=== PATIENT | male | born 1980 | race Caucasian/White ===

== ENCOUNTER → 2022-06-26 13:19 | Outpatient (CLI) | payer BC, SELFPAY ==
--- NOTE | ~2022-06-26 | XR_ITS ---
XR hip RT min 3V w AP pelvis 06/26/2022 13:32 Indication: Right hip pain Procedure: AP pelvis and 2 views right hip Comparison: No prior studies for comparison. Findings: There is mild-moderate osteoarthritis of the hips. No fracture, subluxation or dislocation. Pelvic rings are intact. Sacral foramen are symmetric. Impression: 1: Mild-moderate symmetric osteoarthritis of the hips. Reviewed, dictated and finalized at location L. AND DIE MANAGER Impression: 1: Mild-moderate symmetric osteoarthritis of the hips.
== END ==
PROVIDERS: PCP Family Medicine; Visit Provider Family Medicine
DX: M25.551 Pain in right hip (principal); M16.0 Bilateral primary osteoarthritis of hip
CPT/HCPCS: 73502

== ENCOUNTER 2022-08-01 10:31 | Outpatient (CLI) | payer BC, SELFPAY ==
[2022-08-01 11:07] LABS: Hematocrit 49.2 % (42.0-52.0); Hemoglobin 16.4 g/dL (14.0-18.0); Mean Corpuscular HGB Conc 33.3 g/dl (32-36); Mean Corpuscular Hemoglobin 31.4 pg (26-34); Mean Corpuscular Volume 94.1 fl (80-100); Mean Platelet Volume 9.4 fl (7.4-10.4); Platelet Count Result 196 k/mm3 (150-375); Red Blood Count 5.23 M/mm3 (4.6-6.20); Red Cell Distribution Width 12.6 % (11.5-14.5); White Blood Count 4.6 K/mm3 (4.5-10.0)
[2022-08-01 11:11] LABS: Alanine Aminotransferase 41 U/L (6-50); Albumin Level 4.6 g/dL (3.5-5.1); Alkaline Phosphatase 65 U/L (38-126); Anion Gap 7 mmol/L (8-16); Aspartate Amino Transferase 33 U/L (17-59); Blood Urea Nitrogen 13 mg/dL (9-20); CRP < 0.5 mg/dL (<1.0); Carbon Dioxide 29 mmol/L (22-30); Chloride 102 mmol/L (98-107); Estimated Glomerular Filt Rate > 60; Glucose 105 mg/dL (65-110); Potassium 4.1 mmol/L (3.4-5.0); Sodium 138 mmol/L (137-145)
[2022-08-01 12:28] LABS: Thyroid Stimulating Hormone Reflex 0.553 uIU/mL (0.465-4.68)
[2022-08-01 12:37] LABS: Erythrocyte Sedimentation Rate 3 mm/hr (0-20)
[2022-08-07 10:03] LABS: Gliadin AB, IgG <1.0 U/mL (<15.0); TTG IGA AB <1.0 U/mL (<15.0)
== END 2022-08-01 10:32 | disposition home or self-care (01) ==
PROVIDERS: PCP Family Medicine; Visit Provider Nurse Practitioner
DX: R10.31 Right lower quadrant pain (principal); R10.32 Left lower quadrant pain; Z87.19 Personal history of other diseases of the digestive system; K52.9 Noninfective gastroenteritis and colitis, unspecified
CPT/HCPCS: 36415; 80053; 84443; 85027; 85652; 86140; 86255; 86364

== ENCOUNTER 2022-08-15 08:50 | Outpatient (CLI) | payer BC, SELFPAY ==
--- NOTE | ~2022-08-15 | CT_ITS ---
CT of the Abdomen and Pelvis: Indication: Abdominal pain Technique: 2.5 mm axial scans were obtained through the abdomen and pelvis following intravenous adm inistration of 100 cc of Omnipaque 350. Dose reduction technique was used on this scan by utilizing a utomated exposure control and iterative reconstruction technique. The dose-length product (DLP) was 6 21.34 mGy-cm. COMPARISON: 03/29/2014 Findings: Scans through the lung bases are unremarkable. The liver, spleen, pancreas, gallbladder, adrenals and kidneys are within normal limits. No evidence of aortic aneurysm. No lymphadenopathy. No bowel obstruction or bowel wall thickening. There is no evidence to suggest acute appendicitis. Images through the pelvis were performed. Urinary bladder unremarkable. Prostate gland and seminal ve sicles are unremarkable. No ascites. Impression: No significant abnormalities seen. Reviewed, dictated and finalized at [facility]. Impression: No significant abnormalities seen.
== END 2022-08-15 08:51 | disposition home or self-care (01) ==
PROVIDERS: PCP Family Medicine; Visit Provider Nurse Practitioner
DX: R10.32 Left lower quadrant pain (principal)
CPT/HCPCS: 74177; Q9967

== ENCOUNTER 2022-08-30 01:52 | Day surgery (SDC) | payer BC, SELFPAY ==
[2022-08-16 11:27] VITALS: BMI 28.5
[2022-08-30 08:07] VITALS: BP 118/74; PULSE 77; RESP 16; TEMP 36.3; O2SAT 100; BMI 28.1
[2022-08-30] MEDS: LACTATED RINGERS 1,000 ML 150 ML IV CONT (08:17)
--- NOTE | 2022-08-30 09:17 | P.HPUP_ITS ---
History and Physical Update Update Date/Time: 08/30/22 09:17 Patient's laboratory testing reveals that patient has an elevated anti - gliadin IgA antibody. For this reason additional EGD is requested to exclude celiac sprue. Anti tTG antibody is negative however patient does have chronic soft diarrhea stools that did improve with fiber but is not totally reason to normal. He has had no recent problems with his anal fissure. Family history is significant that his mother was diagnosed with ulcerative colitis. History and Physical has been reviewed, including an updated exam of the patient. There are NO changes in the patient's condition. Risks, benefits, and alternatives have been discussed and questions answered. Patient agrees to proceed with procedure.
--- NOTE | 2022-08-30 09:41 | WPDANESEPPF ---
Anes - Initial Pre Proc Eval Procedure: Operation Date: 08/30/22 09:30 Proposed Procedures p Esophagogastroduodenoscopy with small bowel biopsies & Colonoscopy - Shashi Dickens MD Date/Time: 08/30/22 09:41 Surgeon: Shashi Dickens MD Pre Op Diagnosis: loose stool,gastroenteritis colitis; abn celiac Patient Data Age: 42 Gender: M Height: 1.85 m Weight: 96.9 kg Last Vital Signs Temp 97.3 F L 08/30/22 08:07 Pulse 77 08/30/22 08:07 Resp 16 08/30/22 08:07 BP 118/74 08/30/22 08:07 Pulse Ox 100 08/30/22 08:07 O2 Del Method Room Air 08/30/22 08:07 Allergies Allergy/AdvReac Type Severity Reaction Status Date / Time No Known Allergies Allergy Mild Verified 08/30/22 08:06 Home Medications Medication Instructions Recorded Confirmed Type cetirizine 10 mg capsule (Zyrtec) 10 mg PO DAILY 04/03/19 08/30/22 History montelukast 10 mg tablet 10 mg PO DAILY 11/16/20 08/30/22 History (Singulair) dextroamphetamine-amphetamine ER 10 mg PO QAM #30 caps 07/04/22 08/30/22 Rx 10 mg 24hr capsule,extend release (Adderall XR) Miscellaneous medication See Rx Instructions .Route 08/01/22 08/30/22 Rx .COMPLEX #1 applic Patient hx anesthesia problems: none Family hx anesthesia problems: none Results Review: All pre-operative results and documents have been reviewed as part of the pre-operative evaluation. [facility] Past Medical History Medical History (Updated 08/01/22 @ 10:30 by Loree Gutierrez APRN) ADD (attention deficit disorder) Bilateral lower abdominal cramping Chronic diarrhea Gastro-esophageal reflux disease with esophagitis, with bleeding History of anal fissures LLQ pain Scrotal varices Social History Social History Smoking status: Never smoker Alcohol intake: current Drinks per week: 5 Substance use type: does not use Lack of Transportation: No Lack of Food: Never True Current Housing: I Have Housing Concerned About Future Housing: No Difficulty Paying Gas/Electric Bills: No Difficulty Paying for Meds: No Currently Unemployed: No Difficulty w/ Childcare or Family Care: No Living arrangements: with family Spiritual care concerns: No Anes - Eval Final PreProcedure Day of Procedure 08/30/22 09:41 Patient weight: normal Heart: regular rate and rhythm Lungs: clear to auscultation Airway: Mallampati scale class II Neurological: alert and oriented Last oral intake: >/= 8 hours ASA classification: II Emergent: no Anesthetic plan: proceed Anesthesia type and monitoring: general GIVS and standard monitoring Results Review: All pre-operative results and documents have been reviewed as part of the pre-operative evaluation. Informed Consent: The patient's anesthetic plan and its attendant risks and benefits were discussed with the patient/family/POA. Questions were solicited and answers provided to the satisfaction of the patient/family/POA.
--- NOTE | 2022-08-30 10:36 | SUR.OPER ---
EGD START 1016, END 1019 COLONOSCOPY START 1025, END 1034
[2022-08-30 10:40] VITALS: BP 115/79; PULSE 81; RESP 18; O2SAT 98
[2022-08-30 10:50] VITALS: BP 113/80; PULSE 82; RESP 17; O2SAT 100
== END 2022-08-30 11:19 | disposition home or self-care (01) ==
PROVIDERS: PCP Family Medicine; Visit Provider Internal Medicine Gastroenterology
PROC: 0DJ08ZZ Inspection of Upper Intestinal Tract, Via Natural or Artificial Opening Endoscopic (ICD-10-PCS; CPT 43235; principal; 2022-08-30 09:30)
DX: Z12.11 Encounter for screening for malignant neoplasm of colon (principal); R19.7 Diarrhea, unspecified; K21.00 Gastro-esophageal reflux disease with esophagitis, without bleeding; K31.4 Gastric diverticulum; R76.8 Other specified abnormal immunological findings in serum; F98.8 Other specified behavioral and emotional disorders with onset usually occurring in childhood and adolescence
CPT/HCPCS: 45380; 43239; 88305; J2704; J7120

== ENCOUNTER 2024-07-16 14:13 | Emergency (ER) | payer BC, SELFPAY ==
[2024-07-16] VITALS (28 sets, daily range): BP systolic 122–154; BP diastolic 81–97; PULSE 71–120; RESP 10–22; TEMP 36.6; O2SAT 97–100
--- NOTE | ~2024-07-16 | XR_ITS ---
XR chest 2V Ordering provider: Mayte Becker MD History: 44 years Male with . dizziness, afib . Comparison: None. FINDINGS: MEDIASTINUM: The cardiac silhouette is not enlarged. LUNGS: No infiltrates, effusions or pneumothorax. OTHER: No free air under the diaphragm. IMPRESSION: No acute cardiopulmonary pathology. Reviewed, dictated and finalized at location A.
--- NOTE | 2024-07-16 14:19 | ECG_ITS ---
Test Date: 2024-07-16 14:22:37 Measurements Intervals [place] Rate: 119 P: 0 FL: 0 QRS: 85 QRSD: 93 T: 58 QT: 346 QTc: 488 Interpretive Statements SINUS TACHYCARDIA No previous ECG available for comparison Electronically Signed On 07-17-2024 18:20:00 CDT by Srinivas Berry M.D.
--- OUTSIDE RECORDS SUMMARY | 2024-07-16 14:42 | XMS_ITS | Clinical Summary ---
Author Organization [facility] Address [address] [place] [address] Care Team Providers Care Buffing Wheel Former Automatic Name Role Phone Johnna Patel MD Primary Care Provider + Allergies No known active allergies Medications montelukast (SINGULAIR) 10 mg tablet TK 1 T PO QD 3 9 Active ranitidine (ZANTAC) 150 mg capsule Take 150 mg by mouth 2 (two) times a day Active esomeprazole DR (NexIUM) 20 mg capsule Take 20 mg by mouth daily before breakfast Active cetirizine (ZyrTEC) 10 mg tablet Take 10 mg by mouth daily Active white petrolatum (bulk)-dilTIAZe m (bulk) Apply a pea sized amount (1cm) of diltiazem 2% ointment twice daily to anus for sphincter spasms 60 g 9 Active sodium, potassium & mag sulfates (SUPREP BOWEL KIT) 17.5-3.13-1.6 gram recon solnIndications :Bowel Evacuation Take half of prep day before procedure at 6pm with clear liquids, take second half of prep day of procedure four hours prior to leaving nino 354 mL 3 Active Active Problems Problem Noted Date Diagnosed Date Screening for malignant neoplasm of colon 2022 Overview (08/09/2022): Added automatically from request for surgery [id number] Pruritus ani 05/11/2020 Surgical History Surgery Date Site/Laterality Comments NO PAST SURGERIES Medical History Medical History Date Comments Depression Anxiety Family History Medical History Relation Name Comments Ulcerative colitis Father Relation Name Status Comments Father Social History Tobacco Use Types Packs/Day Years Used Date Smoking Tobacco: Never Smokeless Tobacco: Never Alcohol Use Standard Drinks/Week Comments Yes 0 (1 standard drink = 0.6 oz pur e alcohol) Personal Safety Answer Date Recorded Getting School Help Needed Not on file 07/12 Sex and Gender Information Value Date Recorded Sex Assigned at Not on file Legal Sex Male 8:59 AM THERMOCOUPLE TESTER Gender Identity Not on file Sexual Orientation Not on file Obstetrics History Last Filed Vital Signs Vital Sign Reading Time Taken Comments Blood Pressure 125/85 05/10/2020 12:46 PM THERMOCOUPLE TESTER Pulse 65 05/10/2020 12:46 PM THERMOCOUPLE TESTER Temperature 36.4 C (97.6 F) 05/10/2020 12:46 PM THERMOCOUPLE TESTER Respiratory Rate - - Oxygen Saturation 96% 05/10/2020 12:46 PM THERMOCOUPLE TESTER Inhaled Oxygen Concentration - - Weight 99.8 kg (220 lb) 05/10/2020 12:46 PM THERMOCOUPLE TESTER Height 182.9 cm (6') 05/10/2020 12:46 PM THERMOCOUPLE TESTER Body Mass Index 29.84 05/10/2020 12:46 PM THERMOCOUPLE TESTER Plan of Treatment Health Maintenance Due Date Last Done Comments Colon Cancer Screening-Colonoscopy 1978 Depression Screening 1978 Hepatitis C Screening 1978 Hepatitis B Screening 01/27/1996 Regular Well Visit/Exam 18-64 01/27/1996 Covid-19 Vaccine ( season) 2023 04/12/2021, 08/07/2020, 07/12/2020 Influenza Vaccine (#1) 2023 2, 02/21/2021, 03/22/2020, Additional history exists DTaP/Tdap/Td Vaccine (2 - Td or Tdap) 11/16/2030 11/16/2020 HPV Vaccines Aged Out No longer eligi ble based on patient's age to complete this topic Pneumococcal vaccine <65 Aged Out No longer eligible based on patient's age to complete this topic Insurance [place] [employer] Member Subscriber Plan / Payer (Ef fective 2018-Present) Name:Todd Santana Relation to Subscriber:Self Name:Todd Santana Payer ID:[id number] (NAIC) Group ID:[id number] Type:[facility] Address: [facility] [id number] [place] [address] Care Teams Buffing Wheel Former Automatic Relationship Specialty Start Date End Date Johnna Patel MD PCP - General 11/10/15
--- OUTSIDE RECORDS SUMMARY | 2024-07-16 14:42 | XMS_ITS | Referral Summary ---
Author Organization [facility] Address [address] [place] [address] Care Team Providers Care Auxiliary Power Equipment Operator Name Role Phone Johnna Patel MD Primary [...] (08/09/2022): Added automatically from request for surgery [id number] Pruritus ani 05/11/2020 Social History Tobacco Use Types Packs/Day Years Used Date Smoking Tobacco: Never Smokeless Tobacco: Never Alcohol Use Standard Drinks/Week Comments Yes 0 (1 standard drink = 0.6 oz pur e alcohol) Personal Safety Answer Date Recorded Getting School Help Needed Not on file 07/12 Sex and Gender Information Value Date Recorded Sex Assigned at Not on file Legal Sex Male 8:59 AM SERVICE WRITER Gender Identity Not on file Sexual Orientation Not on file Last Filed Vital Signs Vital Sign Reading Time Taken Comments Blood Pressure 125/85 05/10/2020 12:46 PM SERVICE WRITER Pulse 65 05/10/2020 12:46 PM SERVICE WRITER Temperature 36.4 C (97.6 F) 05/10/2020 12:46 PM SERVICE WRITER Respiratory Rate - - Oxygen Saturation 96% 05/10/2020 12:46 PM SERVICE WRITER Inhaled Oxygen Concentration - - Weight 99.8 kg (220 lb) 05/10/2020 12:46 PM SERVICE WRITER Height 182.9 cm (6') 05/10/2020 12:46 PM SERVICE WRITER Body Mass Index 29.84 05/10/2020 12:46 PM SERVICE WRITER Plan of Treatment Not on file Insurance [place] [facility] Member Subscriber Plan / Payer (Ef fective 2018-Present) Name:Todd Santana Relation to Subscriber:Self Name:Todd Santana Payer ID:[id number] (NAIC) Group ID:[id number] Type:[facility] Address: [facility] [address] [place] [address] Care Teams Auxiliary Power Equipment Operator Relationship Specialty Start Date End Date Johnna Patel MD PCP - General 11/10/15
--- OUTSIDE RECORDS SUMMARY | 2024-07-16 14:42 | XMS_ITS | Clinical Summary ---
Author Organization [facility] Address [address] [place] [address] Care Team Providers Care Hide Mill Man Name Role Phone Johnna Ptael MD Primary Care Provider [phone] Social History Tobacco Use Types Packs/Day Years Used Date Smoking Tobacco: Never Assessed Sex and Gender Information Value Date Recorded Sex Assigned at Not on file Legal Sex Male 3:17 AM CDT Gender Identity Not on file Sexual Orientation Not on file Plan of Treatment Health Maintenance Due Date Last Done Comments Colorectal Cancer Screening Colonoscopy (10 Years) 1978 Annual Physical 1981 Hepatitis C 01/27/1996 DTaP, Tdap and Td Vaccines ( 1 - Tdap) 1997 Hepatitis B Vaccines (1 of 3 - 19+ 3-dose series) 1997 COVID-19 Vaccine (2023-2 5 season) 2023 Influenza Adult (#1) 2024 HPV Vaccines Aged Out No longer eligi ble based on patient's age to complete this topic Meningococcal B Vaccine Aged Out No l onger eligible based on patient's age to complete this topic Meningococcal Vaccine Aged Out No rodney rubi eligible based on patient's age to complete this topic Pneumococcal Vaccine: Pediat rics (0 to 5 Years) and At-Risk Patients (6 to 64 Years) Aged Out No longer eligible b ased on patient's age to complete this topic RSV Immunizations Under 20 Months Aged Out No longer eligible based on patient's age to complete this topic Care Teams Hide Mill Man Relationship Specialty Start Date End Date Johnna Patel MD PCP - General 07/12/15
[2024-07-16 14:47] LABS: Basophils Percent Auto 0.3 % (0.2-1.2); Eosinophils Absolute Auto 0.1 K/mm3 (0-0.3); Eosinophils Percent Auto 0.6 % (0-4.4); Hematocrit 50.9 % (42.0-52.0); Hemoglobin 17.2 g/dL (14.0-18.0); Immature Granulocyte Absolute 0.02 K/mm3 (0.00-0.031); Immature Granulocyte Percent A 0.3 % (0-0.5); Lymphocytes Absolute Auto 1.96 K/mm3 (0.9-3.2); Lymphocytes Percent Auto 24.7 % (18.3-44.2); Mean Corpuscular HGB Conc 33.8 g/dl (32-36); Mean Corpuscular Hemoglobin 31.3 pg (26-34); Mean Corpuscular Volume 92.7 fl (80-100); Mean Platelet Volume 9.4 fl (7.4-10.4); Monocytes Absolute Auto 0.7 K/mm3 (0.1-0.6); Monocytes Percent Auto 8.3 % (2.6-8.5); Neutrophils Absolute Auto 5.2 K/mm3 (1.3-6.7); Neutrophils Percent Auto 65.8 % (45.5-73.1); Platelet Count Result 187 k/mm3 (150-375); Red Blood Count 5.49 M/mm3 (4.6-6.20); Red Cell Distribution Width 12.3 % (11.5-14.5); White Blood Count 7.9 K/mm3 (4.5-10.0)
[2024-07-16 15:05] LABS: Prothrombin Time 13.4 Seconds (11.1-14.7)
[2024-07-16 15:06] LABS: Alanine Aminotransferase 58 U/L (6-50); Albumin Level 4.9 g/dL (3.5-5.1); Alkaline Phosphatase 72 U/L (38-126); Anion Gap 13 mmol/L (4-12); Aspartate Amino Transferase 37 U/L (17-59); Blood Urea Nitrogen 12 mg/dL (9-20); Calcium 9.5 mg/dL (8.4-10.2); Carbon Dioxide 26 mmol/L (22-30); Chloride 101 mmol/L (98-107); Estimated CRCL calculation 126 ml/min; Estimated Glomerular Filt Rate > 60; Glucose 138 mg/dL (65-110); Lipase 61 U/L (23-300); Partial Thromboplastin Time 25.9 Seconds (22.3-36.8); Potassium 3.1 mmol/L (3.4-5.0); Sodium 140 mmol/L (137-145)
[2024-07-16 15:16] LABS: Troponin I < 0.012 ng/mL (0.000-0.034)
[2024-07-16] MEDS: SODIUM CHLORIDE 0.9% IV 1,000 ML 999 ML IV CONT (15:25)
[2024-07-16] MEDS: MECLIZINE HCL 25 MG TABLET PO (15:27)
--- OUTSIDE RECORDS SUMMARY | 2024-07-16 15:45 | XMS_ITS | Referral Summary ---
Author Organization [facility] Address [address] [place] [address] Care Team Providers Care Brake Specialist Name Role Phone Johnna Patel MD Primary [...] (08/09/2022): Added automatically from request for surgery [id number] Pruritus ani 05/11/2020 Social History Tobacco Use [...] on file Legal Sex Male 8:59 AM SHEET METAL TECHNICIAN Gender Identity Not on file Sexual Orientation Not on file Last Filed Vital Signs Vital Sign Reading Time Taken Comments Blood Pressure 125/85 05/10/2020 12:46 PM SHEET METAL TECHNICIAN Pulse 65 05/10/2020 12:46 PM SHEET METAL TECHNICIAN Temperature 36.4 C (97.6 F) 05/10/2020 12:46 PM SHEET METAL TECHNICIAN Respiratory Rate - - Oxygen Saturation 96% 05/10/2020 12:46 PM SHEET METAL TECHNICIAN Inhaled Oxygen Concentration - - Weight 99.8 kg (220 lb) 05/10/2020 12:46 PM SHEET METAL TECHNICIAN Height 182.9 cm (6') 05/10/2020 12:46 PM SHEET METAL TECHNICIAN Body Mass Index 29.84 05/10/2020 12:46 PM SHEET METAL TECHNICIAN Plan of Treatment Not on file Insurance [place] [facility] Member Subscriber Plan / Payer (Ef fective 2018-Present) Name:Todd Santana Relation to Subscriber:Self Name:Todd Santana Payer ID:[id number] (NAIC) Group ID:[id number] Type:[facility] Address: [facility] [address] [place] [address] Care Teams Brake Specialist Relationship Specialty Start Date End Date Johnna Patel MD PCP - General 11/10/15
--- OUTSIDE RECORDS SUMMARY | 2024-07-16 15:45 | XMS_ITS | Clinical Summary ---
Author Organization [facility] Address [address] [place] [address] Care Team Providers Care Manager Community Outreach Name Role Phone Johnna Patel MD Primary Care Provider [phone] [phone] Social History Tobacco Use Types Packs/Day Years [...] age to complete this topic Care Teams Manager Community Outreach Relationship Specialty Start Date End Date Johnna Patel MD PCP - General 07/12/15
--- OUTSIDE RECORDS SUMMARY | 2024-07-16 15:45 | XMS_ITS | Clinical Summary ---
Author Organization [facility] Address [address] [place] [address] Care Team Providers Care Record Center Coordinator Name Role Phone Johnna Patel MD Primary [...] (08/09/2022): Added automatically from request for surgery [id number] Pruritus ani 05/11/2020 Surgical History Surgery Date [...] on file Legal Sex Male 8:59 AM VINEYARDIST Gender Identity Not on file Sexual Orientation Not on file Obstetrics History Last Filed Vital Signs Vital Sign Reading Time Taken Comments Blood Pressure 125/85 05/10/2020 12:46 PM VINEYARDIST Pulse 65 05/10/2020 12:46 PM VINEYARDIST Temperature 36.4 C (97.6 F) 05/10/2020 12:46 PM VINEYARDIST Respiratory Rate - - Oxygen Saturation 96% 05/10/2020 12:46 PM VINEYARDIST Inhaled Oxygen Concentration - - Weight 99.8 kg (220 lb) 05/10/2020 12:46 PM VINEYARDIST Height 182.9 cm (6') 05/10/2020 12:46 PM VINEYARDIST Body Mass Index 29.84 05/10/2020 12:46 PM VINEYARDIST Plan of Treatment Health Maintenance Due Date [...] Name:Todd Santana Payer ID:[id number] (NAIC) Group ID:[id number] Type:[facility] Address: [facility] [id number] [place] [address] Care Teams Record Center Coordinator Relationship Specialty Start Date End Date Johnna Patel MD PCP - General 11/10/15
--- NOTE | 2024-07-16 16:31 | PC.NURSE ---
Up to bathroom. Denies dizziness. Gait steady.
--- NOTE | 2024-07-16 16:46 | ED_ITS ---
HPI - General Adult General Chief complaint: Arrhythmia/Palpitations Stated complaint: Lightheaded x 2 days, Rt shoulder pain Time Seen by Provider: 07/16/24 14:38 History of Present Illness HPI narrative: Patient is a 44-year-old male who presents ER with lightheadedness. Ongoing for 2 days. Spinning dizziness in nature. Sudden onset while sitting at his desk. Worsens with bending over to tie his shoe and back up. Unsure if it is worse with head rotation or turning over. No numbness or weakness the arms or legs. Symptoms are not constant and are intermittent. Said mild sinus congestion over last 2 days. Today he noticed that he was having some right shoulder discomfort. This occurred while he was walking but was not necessarily related to physical exertion. No chest pain. No pain with deep breath. No cough. No history of heart disease. Has history of vertigo in the past and this feels similar arm. Has not taken any medications. Related Data Home Medications ?Medication ?Instructions ?Recorded ?Confirmed ?Last Taken ?Type cetirizine 10 mg capsule (Zyrtec) 10 mg PO DAILY 04/03/19 06/03/24 Unknown History omeprazole 10 mg capsule,delayed 10 mg PO DAILY 05/12/24 06/03/24 Unknown History release Allergies Allergy/AdvReac Type Severity Reaction Status Date / Time No Known Allergies Allergy Mild Verified 07/16/24 14:14 Review of Systems 2 Review of Systems: All systems reviewed & are unremarkable except as noted in HPI and below Constitutional: Constitutional: Reports no additional constitutional complaints Cardiovascular: Cardiovascular: Reports no additional cardiovascular complaints Respiratory: Respiratory: Reports no additional respiratory complaints Gastrointestinal: Gastrointestinal: Reports no additional gastrointestinal complaints Neurologic: Reports system reviewed and no additional complaints, except as documented [facility] Past Medical History Medical History Bilateral lower abdominal cramping LLQ pain History of anal fissures colonoscopy 5.4.[address] Chronic diarrhea colonoscopy 5.4.[address] Bursitis of hip, right Gastro-esophageal reflux disease with esophagitis, with bleeding Scrotal varices ADD (attention deficit disorder) Social History Social History Smoking status: Never smoker Alcohol intake: current Drinks per week: 12 Substance use: never Substance use type: does not use Do You Feel Safe in your Home?: Yes Lack of Transportation: No Lack of Food: Never True Current Housing: I Have Housing Concerned About Future Housing: No Difficulty Paying Gas/Electric Bills: No Difficulty Paying for Meds: No Currently Unemployed: No Difficulty w/ Childcare or Family Care: No Living arrangements: with family Spiritual care concerns: No Exam 2 Narrative: GENERAL: Well-appearing, well-nourished, and in no acute distress. HEAD: Normocephalic, atraumatic. EYES: PERRLA and EOMI. Left gaze nystagmus. ENT: Mucous membranes moist. TMs normal bilaterally, ear canals with only mild amount of nonobstructing cerumen. NECK: Supple. CHEST: Clear to auscultation. No respiratory distress. HEART: Regular rate and rhythm. Normal peripheral pulses. ABDOMEN: Soft, nontender, nondistended. EXTREMITIES: Normal range of motion. No edema. SKIN: Warm, dry, no rash. NEURO: Clear speech, face symmetric. Alert and oriented x3. PSYCH: Normal mood and affect. Course Course Emergency Course: 1620: Patient resting comfortably. Informed of results. Feels markedly improved with meclizine. Fluid infusing. Check a 2nd troponin at the 3 hour cesar. Patient verbalized understanding. EKG looks like sinus rhythm but there is artifact in lead V3. Patient without tachycardia at this time. 1830: Patient still feels well. Second EKG normal. Second troponin undetectable. Appropriate for discharge home. Vital Signs Vital signs: Vital Signs Temperature 98 F 07/16/24 14:15 Pulse Rate 120 H 07/16/24 14:15 Respiratory Rate 20 07/16/24 14:15 Blood Pressure 154/97 H 07/16/24 14:15 Pulse Oximetry 99 07/16/24 14:15 Oxygen Delivery Room Air 07/16/24 14:15 Temperature 98 F 07/16/24 14:15 Pulse Rate 80 07/16/24 16:15 Respiratory Rate 14 07/16/24 16:15 Blood Pressure 137/82 07/16/24 16:15 Pulse Oximetry 100 07/16/24 16:15 Oxygen Delivery Room Air 07/16/24 14:15 Medical Decision Making Vital Signs Vital Signs: Vital Signs Temperature 98 F 07/16/24 14:15 Pulse Rate 120 H 07/16/24 14:15 Respiratory Rate 20 07/16/24 14:15 Blood Pressure 154/97 H 07/16/24 14:15 Pulse Oximetry 99 07/16/24 14:15 Oxygen Delivery Room Air 07/16/24 14:15 Temperature 98 F 07/16/24 14:15 Pulse Rate 80 07/16/24 16:15 Respiratory Rate 14 07/16/24 16:15 Blood Pressure 137/82 07/16/24 16:15 Pulse Oximetry 100 07/16/24 16:15 Oxygen Delivery Room Air 07/16/24 14:15 Lab Data 07/16/24 14:39 07/16/24 14:39 Labs: Lab Results 07/16/24 07/16/24 Range/Units 14:39 17:42 WBC 7.9 (4.5-10.0) K/mm3 RBC 5.49 (4.6-6.20) M/mm3 Hgb 17.2 (14.0-18.0) g/dL Hct 50.9 (42.0-52.0) % MCV 92.7 (80-100) fl MCH 31.3 (26-34) pg MCHC 33.8 (32-36) g/dl RDW 12.3 (11.5-14.5) % Plt Count 187 (150-375) k/mm3 MPV 9.4 (7.4-10.4) fl Immature Gran % (Auto) 0.3 (0-0.5) % Neut % (Auto) 65.8 (45.5-73.1) % Lymph % (Auto) 24.7 (18.3-44.2) % [place] % (Auto) 8.3 (2.6-8.5) % Eos % (Auto) 0.6 (0-4.4) % Baso % (Auto) 0.3 (0.2-1.2) % Lymph # (Auto) 1.96 (0.9-3.2) K/mm3 [place] # (Auto) 0.7 H (0.1-0.6) K/mm3 Eos # (Auto) 0.1 (0-0.3) K/mm3 Baso # (Auto) 0.0 (0.0-0.1) K/mm3 Abs Immat Gran (auto) 0.02 (0.00-0.031) K/mm3 Absolute Neuts (auto) 5.2 (1.3-6.7) K/mm3 Absolute Nucleated RBC 0.000 (0.0-0.012) K/mm3 Nucleated RBC % 0.0 (0.0-0.2) % PT 13.4 (11.1-14.7) Seconds INR 1.0 APTT 25.9 (22.3-36.8) Seconds Sodium 140 (137-145) mmol/L Potassium 3.1 L (3.4-5.0) mmol/L Chloride 101 (98-107) mmol/L Carbon Dioxide 26 (22-30) mmol/L Anion Gap 13 H (4-12) mmol/L BUN 12 (9-20) mg/dL Creatinine 0.81 (0.7-1.3) mg/dL Estim Creat Clear Calc 126 ml/min Estimated GFR > 60 (59 - ) Glucose 138 H (65-110) mg/dL Calcium 9.5 (8.4-10.2) mg/dL Total Bilirubin 1.0 (0.2-1.3) mg/dL AST 37 (17-59) U/L ALT 58 H (6-50) U/L Alkaline Phosphatase 72 (38-126) U/L Troponin I < 0.012 < 0.012 (0.000-0.034) ng/mL Total Protein 8.0 (6.3-8.2) g/dL Albumin 4.9 (3.5-5.1) g/dL Lipase 61 (23-300) U/L Imaging Data Radiologist's impression: ITS Impressions Chest X-Ray 07/16/24 15:10 IMPRESSION: No acute cardiopulmonary pathology. ECG Data EKG #2: ECG completion date: 07/16/24 ECG completion time: 18:15 EKG Interpretation: normal rate (71), sinus rhythm, non-specific ST changes, normal QRS, normal QT and NL axis Discharge Plan Discharge Clinical Impression: Vertigo Patient Disposition: Home, Self-Care Condition: Stable Instructions: Dizziness (ED) Additional Instructions: Return the ER if you have worsening dizziness, you have focal weakness in arm or leg, or you have additional concerns. Patient Language: Moldovan Prescriptions: New meclizine 25 mg tablet 25 mg PO BID PRN (Reason: dizziness) Qty: 14 0RF No Action Zyrtec 10 mg capsule 10 mg PO DAILY omeprazole 10 mg capsule,delayed release(DR/EC) 10 mg PO DAILY dextroamphetamine-amphetamine 10 mg capsule,extended release 24hr 10 mg PO QAM Qty: 30 0RF Rx Instructions: April dextroamphetamine-amphetamine [Adderall XR] 10 mg capsule,extended release 24hr 10 mg PO QAM Qty: 30 0RF Rx Instructions: May dextroamphetamine-amphetamine 10 mg capsule,extended release 24hr 10 mg PO QAM Qty: 30 0RF Rx Instructions: June methylprednisolone [Medrol (Trip)] 4 mg tablets,dose pack See Rx Instructions PO PER PKG DIR Qty: 21 0RF Rx Instructions: PO PER PKG DIR for 6 days sertraline 25 mg tablet 25 mg PO DAILY Qty: 180 3RF Rx Instructions: 1 po q day x 2 weeks then increase to 2 po q day Follow-up/Referrals: Johnna Patel MD [Primary Care Provider] - 1 Week
[2024-07-16 18:09] LABS: Troponin I < 0.012 ng/mL (0.000-0.034)
--- NOTE | 2024-07-16 18:09 | ECG_ITS ---
Test Date: 2024-07-16 18:15:47 Measurements Intervals [place] Rate: 71 P: 64 GA: 172 QRS: 29 QRSD: 89 T: 50 QT: 365 QTc: 397 Interpretive Statements SINUS RHYTHM WITH SINUS ARRHYTHMIA POSSIBLE LEFT ATRIAL ENLARGEMENT [-0.1mV P-WAVE IN V1/V2] INCOMPLETE RIGHT BUNDLE BRANCH BLOCK SEPTAL MYOCARDIAL INFARCTION , OF INDETERMINATE AGE [40+ ms Q WAVE IN V1/V2] Compared to ECG 07/16/2024 14:22:37 Sinus tachycardia no longer present Electronically Signed On 07-17-2024 18:25:01 CDT by Srinivas Berry M.D.
== END 2024-07-16 18:51 | disposition home or self-care (01) ==
PROVIDERS: Emergency Medicine; Emergency Provider Emergency Medicine; PCP Family Medicine
DX: R42 Dizziness and giddiness (principal); F98.8 Other specified behavioral and emotional disorders with onset usually occurring in childhood and adolescence
CPT/HCPCS: 36415; 71046; 80053; 83690; 84484; 85025; 85610; 85730; 93005; 96360; 99284; A9270; J7030

== ENCOUNTER 2024-08-20 10:39 | Outpatient (CLI) | payer BC, SELFPAY ==
--- OUTSIDE RECORDS SUMMARY | 2024-08-20 12:02 | XMS_ITS ---
Author Organization Formerly [facility] [place] ([address]) Address [address] [facility] [address] [place] [address] Care Team Providers Care Repair Armature Winder Name Role Phone Johnna Patel MD Primary Care Provider Austin Molina Unavailable [phone] ZZ-Migration, Provider Unavailable Unavailab le REASON FOR VISIT Mult To [facility] Conversion Encounter Medications Medication SIG (Take, Route, Frequency, Duration) Notes Start Date End Date Status Famotidine 40 MG 1 tab(s) orally once for 30 day(s) Active Nasacort Allergy 24HR 55 MCG/ACT 2 spray(s) intranasally once a day for 30 day(s) Active Zoloft 25 MG 1 tab(s) orally once a day for 30 day(s) Active ZyrTEC Allergy 10 MG 1 tab(s) orally Qda y for 30 day(s) Active Singulair 10 MG 1 tab(s) orally once a day for 90 days Active Omeprazole 20 MG 1 cap(s) orally once a day for 30 day(s) Active Encounters Encounter Location Date Provider Diagnosis [address] [address] 10/12/2023 Provider ZZ-Migration Idiopathic urticaria L50.1 and Chronic rhinitis J31.0 Assessments Encounter Date Diagnosis (ICD Code) Assessment Notes Treatment Notes Treatment Clinical Notes Section Notes 10/12/2023 Idiopathic urticaria (ICD-10 - L50.1) 10/12/2023 Chronic rhinitis (ICD-10 - J31.0) Plan Of Treatment Medication Medication Name Sig Start Date Stop Date Notes Famotidine 40 MG 1 tab(s) orally once for 30 day(s) Nasacort Allergy 24HR 55 MCG/ACT 2 spray(s) intranasally once a day for 30 day(s) ZyrTEC Allergy 10 MG 1 tab(s) orally Qda y for 30 day(s) Singulair 10 MG 1 tab(s) orally once a day for 90 days Progress Notes * Todd CARRILLODOB: 8 (44 yo M)Acc No.[id number]:10/12/2023 Patient: Todd PHAM Provider: Danyel Bradford :1980 A ge:43 Y S ex:Male Date:10/12/2023 Address:[address] [place] [address], [facility] Pcp:Johnna Patel MD Subjective: * Chief Complaints: * 1 . [facility]. * Medical History: * Medications: T aking Zoloft 25 MG Tablet 1 tab(s) orally once a day , Taking Omeprazole 20 MG Capsule Delayed Release 1 cap(s) orally once a day Objective: * Vitals: Assessment: * Assessment: 1. I diopathic urticaria - L50.1 (Primary) 2 . C hronic rhinitis - J31.0? Plan: * Treatment: 2. C hronic rhinitis Hold Nasacort Allergy 24HR Aerosol, 55 MCG/ACT, 2 spray(s), intranasally, once a day, 30 day(s).? 3. O thers Start Singulair Tablet, 10 MG, 1 tab(s), orally, once a day, 90 days, 90 Tablet, Refills 1. ? * Billing Information: * Visit Code: * Procedure Codes: * Electronic signature of Prov ider ZZ-Migration on 08/20/2024 at 12:02 PM CDT Sign off status: Pending * Provider: Danyel Bradford Date: 10/12/2023 Generated for Fco chaidez/Meg/Teditting on: 08/20/2024 12:02 PM CDT
--- OUTSIDE RECORDS SUMMARY | 2024-08-20 12:02 | XMS_ITS ---
Author Organization [facility] [place] ([address]) Address [address] [facility] [address] [place] [address] Care Team Providers Care Hygiene Teacher Name Role Phone Jorge MAYORGA, Johnna Primary Care Provider Loli patelAustin Wise Unavailable [phone] Syeda Odonnell Unavailable [phone] REASON FOR VISIT [facility] follow-up Encounters Encounter Location Date Provider Diagnosis [address] [address] 08/27/2023 Syeda Odonnell Plan Of Treatment No Information Progress Notes * Todd CARRILLODOB: 8 (44 yo M)Acc No.[id number]:08/27/2023 Progress Notes Patient: Todd PHAM Provider: CHERYL Weems :1980 A ge:43 Y S ex:Male Date:08/27/2023 Address:[address], [facility] Pcp:Johnna Patel MD Subjective: * Chief Complaints: * 1 . [facility]C follow-up. * Medical History: Objective: * Vitals: Assessment: Plan: * Treatment: * Billing Information: * Visit Code: * Procedure Codes: * Electronic signature of CHERYL Fernandez on 08/20/2024 at 12:02 PM CDT Sign off status: Pending * Provider: CHERYL Weems Date: 0 08/27/2023 Generated for Printi ng/Faxing/eTransmitting on: 0 08/20/2024 12:02 PM CDT
--- OUTSIDE RECORDS SUMMARY | 2024-08-20 12:02 | XMS_ITS | Referral Summary ---
Author Organization [facility] Address [address] [place] [address] Care Team Providers Care Foreclosure Home Inspector Name Role Phone Johnna Patel MD Primary [...] (08/09/2022): Added automatically from request for surgery [id number] Pruritus ani 05/11/2020 Social History Tobacco Use [...] on file Legal Sex Male 8:59 AM SPARE HAND Gender Identity Not on file Sexual Orientation Not on file Last Filed Vital Signs Vital Sign Reading Time Taken Comments Blood Pressure 125/85 05/10/2020 12:46 PM SPARE HAND Pulse 65 05/10/2020 12:46 PM SPARE HAND Temperature 36.4 C (97.6 F) 05/10/2020 12:46 PM SPARE HAND Respiratory Rate - - Oxygen Saturation 96% 05/10/2020 12:46 PM SPARE HAND Inhaled Oxygen Concentration - - Weight 99.8 kg (220 lb) 05/10/2020 12:46 PM SPARE HAND Height 182.9 cm (6') 05/10/2020 12:46 PM SPARE HAND Body Mass Index 29.84 05/10/2020 12:46 PM SPARE HAND Plan of Treatment Not on file Insurance [facility] Member Subscriber Plan / Payer (Ef fective 2018-Present) Name:Todd Santana Relation to Subscriber:Self Name:Todd Santana Payer ID:[id number] (NAIC) Group ID:[id number] Type:[facility] Address: [facility] [address] [place] [address] Care Teams Foreclosure Home Inspector Relationship Specialty Start Date End Date Johnna Patel MD PCP - General 11/10/15
--- OUTSIDE RECORDS SUMMARY | 2024-08-20 12:02 | XMS_ITS ---
Author Organization [facility] [place] ([address]) Address [address] [facility] [address] [place] [address] Care Team Providers Care Pie Topper Name Role Phone Jorge MAYORGA, Johnna Primary Care Provider Loli patelAustin Wise Unavailable [phone] Syeda Odonnell Unavailable [phone] REASON FOR VISIT [facility]C follow-up Encounters Encounter Location Date Provider Diagnosis [address] [address] 09/17/2023 Syeda Odonnell Plan Of Treatment No Information Progress Notes * Todd CARRILLODOB: 8 (44 yo M)Acc No.[id number]:09/17/2023 Progress Notes Patient: Todd PHAM Provider: CHERYL Weems :1980 A ge:43 Y S ex:Male Date:09/17/2023 Address:[address], [facility] Pcp:Johnna Patel MD Subjective: * Chief Complaints: * 1 . ARC follow-up. * Medical History: Objective: * Vitals: Assessment: Plan: * Treatment: * Billing Information: * Visit Code: * Procedure Codes: * Electronic signature of CHERYL Fernandez on 08/20/2024 at 12:02 PM CDT Sign off status: Pending * Provider: CHERYL Weems Date: 0 09/17/2023 Generated for Printi ng/Faxing/eTransmitting on: 0 08/20/2024 12:02 PM CDT
--- OUTSIDE RECORDS SUMMARY | 2024-08-20 12:02 | XMS_ITS | Clinical Summary ---
Author Organization [facility] Address [address] [place] [address] Care Team Providers Care Freight Handler Name Role Phone Johnna Patel MD Primary [...] (08/09/2022): Added automatically from request for surgery [id number] Pruritus ani 05/11/2020 Surgical History Surgery Date [...] on file Legal Sex Male 8:59 AM INTERNATIONAL FREIGHT FORWARDER Gender Identity Not on file Sexual Orientation Not on file Obstetrics History Last Filed Vital Signs Vital Sign Reading Time Taken Comments Blood Pressure 125/85 05/10/2020 12:46 PM INTERNATIONAL FREIGHT FORWARDER Pulse 65 05/10/2020 12:46 PM INTERNATIONAL FREIGHT FORWARDER Temperature 36.4 C (97.6 F) 05/10/2020 12:46 PM INTERNATIONAL FREIGHT FORWARDER Respiratory Rate - - Oxygen Saturation 96% 05/10/2020 12:46 PM INTERNATIONAL FREIGHT FORWARDER Inhaled Oxygen Concentration - - Weight 99.8 kg (220 lb) 05/10/2020 12:46 PM INTERNATIONAL FREIGHT FORWARDER Height 182.9 cm (6') 05/10/2020 12:46 PM INTERNATIONAL FREIGHT FORWARDER Body Mass Index 29.84 05/10/2020 12:46 PM INTERNATIONAL FREIGHT FORWARDER Plan of Treatment Health Maintenance Due Date [...] Name:Todd Santana Payer ID:[id number] (NAIC) Group ID:[id number] Type:[facility] Address: [facility] [id number] [place] [address] Care Teams Freight Handler Relationship Specialty Start Date End Date Johnna Patel MD PCP - General 11/10/15
--- OUTSIDE RECORDS SUMMARY | 2024-08-20 12:03 | XMS_ITS | Patient Health Record ---
Author Organization [facility] [employer] [place] ([address]) Address [address] [facility] [address] [place] [address] Care Team Providers Care Automobile Service Station Attendant Name Role Phone Jorge MAYORGA, Johnna Primary Care Provider Loli StatonAustin Unavailable [phone] Syeda Odonnell Unavailable [phone] ZZ-Migration, Provider Unavailable Unavailab le Allergies No Known Allergies Reason For Referral No Information Medications Medication SIG (Take, Route, Frequency, Duration) Notes Start Date End Date Status ZYRTEC 10 mg 1 tab(s) orally Qday for 30 day(s) Active Famotidine 40 MG 1 tab(s) orally once for 30 day(s) Active OMEPRAZOLE 20 mg 1 cap(s) orally once a day for 30 day(s) Active Nasacort Allergy 24HR 55 MCG/ACT 2 spray(s) intranasally once a day for 30 day(s) Active Zoloft 25 MG 1 tab(s) orally once a day for 30 day(s) Active ZyrTEC Allergy 10 MG 1 tab(s) orally Qda y for 30 day(s) Active ZOLOFT 25 mg 1 tab(s) orally once a day for 30 day(s) Active SINGULAIR 10 mg 1 tab(s) orally once a day for 90 days Active NASACORT ALLERGY 24HR 55 mcg/inh 2 spray(s) intranasally once a day for 30 day(s) Active FAMOTIDINE 40 mg 1 tab(s) orally once for 30 day(s) Active Singulair 10 MG 1 tab(s) orally once a day for 90 days Active Omeprazole 20 MG 1 cap(s) orally once a day for 30 day(s) Active Immunizations Vaccine Route Administration Date Status Comme nts NOC Influenza-Fluzone Unknown 03/02/2019 Administered NOC Fluzone Quadrivalent Unknown 02/17/2018 Refused NOC Fluzone Quadrivalent IM Intramuscular 02/20/2022 Admin istered NOC Flucelevax Quadrivalent Unknown 03/22/2020 Administered Covid 19 (Pfizer) Unknown 07/12/2020 Administered Covid 19 (Pfizer) Unknown 08/07/2020 Administered Social History Tobacco Use: Social History Observation Description Date Details (start date - stop date) Never Smoker NA - NA Smoking Smart Form: Question Answer Notes Are you a: never smoker Additional Findings:Tobacco Non-User Current non -smoker Problems Problem Type SNOMED Code ICD Code Onset Dates Problem Status W/U Status Risk Notes Problem Idiopathic urticaria (29041187) Idiopathic urticaria (L50.1) Active confirmed Problem Angioneurotic edema (97362048) Angioneurotic edema, initial encounter (T78.3XXA) Active confirmed Problem Chronic rhinitis (36994549) Chronic rhinitis (J31.0) Active confirmed Problem Angioneurotic edema (79674513) Angioneurotic edema, subsequent encounter (T78.3XXD) Active confirmed Problem Elevated blood pressure reading without diagnosis of hypertension (573030049) Elevated blood-pressure reading, without diagnosis of hypertension (R03.0) Active confirmed Encounters Encounter Location Date Provider Diagnosis [address] [address] 10/12/2023 Provider Nicol Idiopathic urticaria L50.1 and Chronic rhinitis J31.0 Assessments Encounter Date Diagnosis (ICD Code) Assessment Notes Treatment Notes Treatment Clinical Notes Section Notes 10/12/2023 Idiopathic urticaria (ICD-10 - L50.1) 10/12/2023 Chronic rhinitis (ICD-10 - J31.0) Plan Of Treatment No Information Insurance Providers Payer Name Payer Address Payer Phone Subscriber Number Group Number Insured Name Patient Relationship to Insured Coverage Start Date Coverage End Date [facility] [id number] [place] [address] [id number] Todd Santana Self - patient is the insured 4 Medical (General) History Medical History History ICD Code Idiopathic urticaria Angioneurotic edema, initial encounter Chronic rhinitis Gastro-esophageal reflux disease without esophagitis Surgical History Surgery Date(Month/Year) Pin, Right Arm Hospitalization History Reason Date(Month/Year) Panic Attack
== END 2024-08-20 10:40 | disposition home or self-care (01) ==
LOC: ANHAUDIO 10:39
PROVIDERS: PCP Family Medicine; Visit Provider Otolaryngology Otolaryngology/Facial Plastic Surgery
DX: H91.90 Unspecified hearing loss, unspecified ear (principal)
CPT/HCPCS: 92557; 92567

== ENCOUNTER 2024-10-07 15:06 | Outpatient (CLI) | payer BC, SELFPAY ==
--- NOTE | ~2024-10-07 | XR_ITS ---
XR cervical spine 4-5V 10/07/2024 15:22 Indication: Radiculopathy Procedure: 5 views cervical spine Comparison: No prior studies for comparison. Findings: Straightening of cervical lordosis. Vertebral body heights are maintained. There is disc na rrowing at C5-6 and C6-7. There is no prevertebral soft tissue abnormality. There is uncinate and fac et hypertrophy at C5-6 and C6-7. Lung apices are unremarkable. Odontoid process is normal. Impression: 1: Moderate-severe cervical spondylosis most advanced at C5-6 and C6-7.. Reviewed, dictated and finalized at location [] Impression: 1: Moderate-severe cervical spondylosis most advanced at C5-6 and C6-7..
== END 2024-10-07 15:07 | disposition home or self-care (01) ==
LOC: GOSHIMG 15:06
PROVIDERS: PCP Family Medicine; Visit Provider Family Medicine
DX: M54.12 Radiculopathy, cervical region (principal); M43.02 Spondylolysis, cervical region
CPT/HCPCS: 72050